=== PATIENT | male | born 1940 | race Caucasian/White ===

== ENCOUNTER 2022-09-12 22:17 | Emergency (ER) | payer MEDICARE, OTHER ==
[2022-09-12] MEDS ORDERED: HYDROcodone/Acetaminophen 5/325 mg Tablet ONE (22:50)
[2022-09-12] MEDS ORDERED: Dexamethasone 4 MG TAB ONE (23:31)
== END 2022-09-12 23:35 | disposition home or self-care (01) ==
LOC: BURERS 22:17
DX: M25.562 Pain in left knee (principal); I10 Essential (primary) hypertension; Z79.01 Long term (current) use of anticoagulants
CPT/HCPCS: 36415; 84550; 99283; J8540

== ENCOUNTER 2024-04-09 17:30 | Emergency (ER) | payer MEDICARE, OTHER | END 2024-04-09 18:39 | disposition home or self-care (01) | LOC: BURERS 17:30 | DX: S51.811A Laceration without foreign body of right forearm, initial encounter (principal); I10 Essential (primary) hypertension; Z87.891 Personal history of nicotine dependence; W22.8XXA Striking against or struck by other objects, initial encounter | CPT/HCPCS: 12002; 99282 ==